=== PATIENT | male | born 1950 | race Caucasian/White ===

== ENCOUNTER 2024-07-27 18:39 | Inpatient (IN) | payer OTHER, SELFPAY ==
[2024-07-27] VITALS (10 sets, daily range): BP systolic 114–154; BP diastolic 67–80
[2024-07-27 11:23] LABS: % Basophils 0.4 % (0-2); % Immature Granulocytes 0.3 % (0-0.5); % Lymphocytes 17.5 % (20.5-51.1); % Monocytes 4.6 % (1.7-9.3); % Neutrophils 77.2 % (42.2-75.2); Absolute Lymphocytes 1.2 10^3/uL (1.2-3.4); Absolute Monocytes 0.3 10^3/uL (0.1-0.6); Absolute Neutrophils 5.4 10^3/uL (1.4-6.5); Hematocrit 33.8 % (39.0-52.0); Hemoglobin 11.7 g/dL (13.0-18.0); Mean Corp Hgb Conc. 34.6 g/dL (33.0-37.0); Mean Corpuscular Hgb 31.6 pg (27.0-31.0); Mean Corpuscular Volume 91.4 fL (80.0-94.0); Mean Platelet Volume 11.3 fL (7.4-10.4); Nucleated Red Blood Cells % 0 % (-); Platelet Count 208 10^3/uL (130-400); Red Cell Dist. Width 12.7 % (11.5-14.5)
[2024-07-27 11:45] LABS: ALT (SGPT) 20 U/L (0-50); AST (SGOT) 19 U/L (17-59); Alkaline Phosphatase 62 U/L (38-126); Blood Urea Nitrogen 50 mg/dl (9-20); Calcium 9.9 mg/dl (8.4-10.2); Carbon Dioxide 28 mmol/L (22-30); Chloride 109 mmol/L (98-107); Glucose 182 mg/dl (70-99); Lipase 41 U/L (23-300); NT-proBNP 566 pg/ml; Potassium 4.1 mmol/L (3.5-5.1); Sodium 146 mmol/L (135-145); Total Bilirubin 1.1 mg/dl (0.2-1.3); Total Protein 7.3 g/dl (6.3-8.2); Troponin I < 0.012 ng/ml; eGFR > 60.00
[2024-07-27] MEDS: NSS 500 IV (12:48)
[2024-07-27] MEDS: PROTONIX IV 80 MG IV (12:52)
[2024-07-27] MEDS: ZOFRAN 4 MG IV ×3 (12:53→18:21)
--- NOTE | 2024-07-27 14:07 | ED.GENMED ---
History of Present Illness
<WILLIE Tineo Jr. Last Filed: 07/28/24 08:28>
General
Chief Complaint: Abdominal Symptoms
Source: patient
Exam Limitations: none
Time Seen by Provider: 07/27/24 12:14
Nursing documentation reviewed up to this point in time: agreed with
History of Present Illness
History of Present Illness:
74-year-old male past medical history of CHF CAD valve disorder previous TAVR in 2021, ulcerative colitis presenting to the emergency department today with concerns of nausea vomiting diarrhea starting last night also pain across the abdomen noticed
very dark color of the stool as well.
Review of Systems
<Duke Pinon Jr., PA-C - Last Filed: 07/28/24 08:28>
Review of Systems
Allergies reviewed?: Yes
All Other Systems: ROS reviewed and negative except as documented in HPI and ROS
Phy Exam
<WILLIE Tineo Jr. Last Filed: 07/28/24 08:28>
Physical Exam
Physical Exam:
GENERAL: Alert , in no apparent distress
EYE: pupils equal and reactive
NECK: Supple, no significant adenopathy.
ENT: o/p clr, mmm.
CARDIAC: Regular rate and rhythm .
LUNGS: Clear breath sounds bilaterally, no acute respiratory distress, no wheezes/rales/rhonchi
ABDOMEN: Vague discomfort throughout the abdomen, rectal examination with dark black stool positive for guaiac
NEUROLOGICAL: Alert and oriented, no focal neuro deficits
SKIN: Warm and dry, skin intact.
MUSCULOSKELETAL: No edema, well perfused.
PSYCH: Normal and appropriate interaction.
Sepsis
<WILLIE Tineo Jr. Last Filed: 07/28/24 08:28>
Sepsis Screen
Sepsis Screen: Sepsis Ruled Out
Date: 07/28/24
Time: 08:28
<Sergey Matta PA-C - Last Filed: 07/27/24 15:57>
Sepsis Screening
Sepsis Assessment: Sepsis Ruled Out
Sepsis Screen
Sepsis Screen: Sepsis Ruled Out
Date: 07/27/24
Time: 15:56
Course
<Duke Pinon Jr., PA-C - Last Filed: 07/28/24 08:28>
Orders/Labs/Results
Orders:
Orders
07/27/24 10:45
Electrocardiogram (*1) Urgent
Reason for Study: Abdominal Pain
EKG- Treatment ONCE
07/27/24 11:03
Complete Blood Count/With Diff Urgent
Comprehensive Metabolic Panel Urgent
Ferritin Urgent
Comment: ADD ON
Iron Urgent
Comment: ADD ON
Lipase Urgent
NT-proBNP Urgent
Total Iron Binding Urgent
Comment: ADD ON
Troponin I Urgent
07/27/24 12:33
CT Abd/Pel (IV only)-DH only Urgent
Comment:
Reason For Exam: Gi bleed, mid abd pain
0.9% Sodium Chloride 500 ml [Nss] 500 ml IV BOLUS
Ondansetron Injectable [Zofran] 4 mg IV NOW STA
Pantoprazole [Protonix IV] 80 mg IV NOW STA
Chest [CR Chest - 2 Views ] Urgent
Comment:
Reason For Exam: cough
07/27/24 14:22
Type+Screen Urgent
07/27/24 Dinner
NPO
Allow oral meds: Yes
Allow clear liquids: No
NPO with Ice Chips: Yes
07/27/24 15:01
ABO2 Routine
BBK Wristband Number:
Associate notified that ABO2 has been ordered: Y
Date: 07/27/24
Time: 14:32
Senior Advocate ID: [id number]
07/27/24 15:55
HYDROmorphone [Dilaudid] 0.5 mg IV NOW STA
Ondansetron Injectable [Zofran] 4 mg IV NOW STA
07/27/24 17:45
Add On- LAB Urgent
Tests Added?: tibc ferritin iron
07/27/24 17:49
GASTROINTESTINAL CONSULT Routine
Consulting Provider: Gabriel Whatley
Was physician already notified: Yes
Reason for consult: poss upper gi bleed vs gastroenteritis
07/27/24 17:50
Admit/Transfer Patient As Directed
Co-Sign Provider:
Level of Care: Inpatient admission
Assign to:: Telemetry
Physician / Group: hai escalante
Diagnosis: gi bleed versus acute gastroentritis
Reason for Telemetry: Arrhythmia
Date to Stop Telemetry: 07/30/24
Time to Stop Telemetry: 11:00
Reason for Hospitalization: gi bleed versus acute gastroentritis
Expected length of stay greater than two midnights?: Yes
ELOS- Estimated Length of Stay in days: 3
I certify the patient meets the requirements for IP care: Yes
Code Status As Directed
Resuscitation Status: Full Code
07/27/24 17:56
PRN Pain Medication Management As Directed
May give lesser potent ordered pain med per pt: Yes
preference::
Protocol:: Medication orders for pain may be administered in a
manner that supports deferring to patient preference
when the pt is:
- Requesting an ordered lesser potent pain medication.
Least to most potent pain medications are defined
as: acetaminophen < NSAID < tramadol < opioids
(morphine, oxycodone, hydromorphone).
- Requesting a lesser dose of the same medication IF
ORDERED.
- Requesting a less intrusive route of administration
if both routes are prescribed by the provider (PO <
IV).
07/27/24 18:00
0.9% Sodium Chloride 1000 ml [Nss] 1,000 ml IV 60 mls/hr
07/27/24 18:16
Ondansetron Injectable [Zofran] 4 mg IV Q6HPRN PRN
07/27/24 21:18
Carvedilol [Coreg] 6.25 mg PO BID
Ezetimibe [Zetia] 10 mg PO QPM
HYDROmorphone [Dilaudid] 0.5 mg IV Q4HPRN PRN
HYDROmorphone [Dilaudid] 1 mg IV Q6HPRN PRN
Losartan [Cozaar] 50 mg PO BID
Rosuvastatin Calcium [Crestor] 5 mg PO QPM
dorzolamide-timolol 1 drop BOTH EYES BID
07/27/24 21:18
Activity As Directed
Activity Level: As Tolerated
Comment: uses cane at baseline
Intake/ Output As Directed
Frequency: Per unit guidelines
Old Records Request [Obtain Records] As Directed
Dates of Information to be Released: mar 2021
Type of Information Requested: Discharge Summary
Consults
Other
If Other, list type of info requested: echo, endoscopy report
Obtain Records from: [facility], [facility], Gastroenterology
Pneumatic Compression Sleeves As Directed
Type: Knee high
Vital Signs As Directed
Frequency: Per unit guidelines
Weight As Directed
Frequency: Daily
Pt Eval And Treat Routine
Activity Level: With Assistance
DX Deep Vein Thrombosis Video Routine
07/27/24 22:00
Gabapentin [Neurontin] 200 mg PO TID
Latanoprost [Xalatan Ophthalmic Solution] 1 drop BOTH EYES QPM
diphenhydramine-acetaminophen [Acetaminophen PM] 2 tablet PO HS
07/27/24 23:50
Stool Culture Routine
ALIX Source: Feces/Stool
Specimen Description:
Date Specimen was Collected: 07/27/24
Time Specimen was Collected: 23:10
Stool For WBC Routine
ALIX Source: Feces/Stool
Specimen Description:
Date Specimen was Collected: 07/27/24
Time Specimen was Collected: 23:10
07/28/24 Breakfast
NPO
Allow oral meds: Yes
Allow clear liquids: No
NPO with Ice Chips: No
Complete Blood Count/With Diff IN AM
Comprehensive Metabolic Panel IN AM
07/28/24 08:00
Acetaminophen [Tylenol] 1,000 mg PO DAILY
Amlodipine [Norvasc] 10 mg PO DAILY
Metoprolol Xl [Toprol Xl] 50 mg PO DAILY
Sertraline HCl [Zoloft] 50 mg PO DAILY
tadalafil 5 mg PO DAILY
07/29/24 06:00
Complete Blood Count/With Diff IN AM
Comprehensive Metabolic Panel IN AM
07/30/24 06:00
Complete Blood Count/With Diff IN AM
Comprehensive Metabolic Panel IN AM
07/30/24 08:00
Clonidine [Xlyyipbz-Bwi-7] 0.2 mg TRANSDERM NELSON
07/30/24 11:00
DC Protocol for Telemetry ONCE
Abnormal Lab Results
07/27/24
11:03
RBC 3.70 L 10^6/uL
(4.70-6.10)
Hgb 11.7 L g/dL
(13.0-18.0)
Hct 33.8 L %
(39.0-52.0)
MCH 31.6 H pg
(27.0-31.0)
MPV 11.3 H fL
(7.4-10.4)
Neutrophils % 77.2 H %
(42.2-75.2)
Lymphocytes % 17.5 L %
(20.5-51.1)
Sodium 146 H mmol/L
(135-145)
Chloride 109 H mmol/L
(98-107)
BUN 50 H mg/dl
(9-20)
Glucose 182 H mg/dl
(70-99)
07/27/24 11:03
07/27/24 11:03
Vital Signs
Initial and Last Documented VS:
Initial Vital Signs
Pulse Resp BP Pulse Ox
93 22 114/67 100
07/27/24 10:33 07/27/24 10:33 07/27/24 10:33 07/27/24 10:33
Last Documented Vital Signs
Temp Pulse Resp BP Pulse Ox
97.7 F 85 17 111/63 100
07/28/24 07:50 07/28/24 07:50 07/28/24 07:50 07/28/24 07:50 07/28/24 07:50
<Sergey Matta PA-C - Last Filed: 07/27/24 15:57>
Orders/Labs/Results
Orders:
Orders
07/27/24 10:45
Electrocardiogram (*1) Urgent
Reason for Study: Abdominal Pain
EKG- Treatment ONCE
07/27/24 11:03
Complete Blood Count/With Diff Urgent
Comprehensive Metabolic Panel Urgent
Ferritin Urgent
Comment: ADD ON
Iron Urgent
Comment: ADD ON
Lipase Urgent
NT-proBNP Urgent
Total Iron Binding Urgent
Comment: ADD ON
Troponin I Urgent
07/27/24 12:33
CT Abd/Pel (IV only)-[facility] only Urgent
Comment:
Reason For Exam: Gi bleed, mid abd pain
0.9% Sodium Chloride 500 ml [Nss] 500 ml IV BOLUS
Ondansetron Injectable [Zofran] 4 mg IV NOW STA
Pantoprazole [Protonix IV] 80 mg IV NOW STA
Chest [CR Chest - 2 Views ] Urgent
Comment:
Reason For Exam: cough
07/27/24 14:22
Type+Screen Urgent
07/27/24 Dinner
NPO
Allow oral meds: Yes
Allow clear liquids: No
NPO with Ice Chips: Yes
07/27/24 15:01
ABO2 Routine
BBK Wristband Number:
Associate notified that ABO2 has been ordered: Y
Date: 07/27/24
Time: 14:32
Senior Advocate ID: [id number]
07/27/24 15:55
HYDROmorphone [Dilaudid] 0.5 mg IV NOW STA
Ondansetron Injectable [Zofran] 4 mg IV NOW STA
07/27/24 17:45
Add On- LAB Urgent
Tests Added?: tibc ferritin iron
07/27/24 17:49
GASTROINTESTINAL CONSULT Routine
Consulting Provider: Gabriel Whatley
Was physician already notified: Yes
Reason for consult: poss upper gi bleed vs gastroenteritis
07/27/24 17:50
Admit/Transfer Patient As Directed
Co-Sign Provider:
Level of Care: Inpatient admission
Assign to:: Telemetry
Physician / Group: hai escalante
Diagnosis: gi bleed versus acute gastroentritis
Reason for Telemetry: Arrhythmia
Date to Stop Telemetry: 07/30/24
Time to Stop Telemetry: 11:00
Reason for Hospitalization: gi bleed versus acute gastroentritis
Expected length of stay greater than two midnights?: Yes
ELOS- Estimated Length of Stay in days: 3
I certify the patient meets the requirements for IP care: Yes
Code Status As Directed
Resuscitation Status: Full Code
07/27/24 17:56
PRN Pain Medication Management As Directed
May give lesser potent ordered pain med per pt: Yes
preference::
Protocol:: Medication orders for pain may be administered in a
manner that supports deferring to patient preference
when the pt is:
- Requesting an ordered lesser potent pain medication.
Least to most potent pain medications are defined
as: acetaminophen < NSAID < tramadol < opioids
(morphine, oxycodone, hydromorphone).
- Requesting a lesser dose of the same medication IF
ORDERED.
- Requesting a less intrusive route of administration
if both routes are prescribed by the provider (PO <
IV).
07/27/24 18:00
0.9% Sodium Chloride 1000 ml [Nss] 1,000 ml IV 60 mls/hr
07/27/24 18:16
Ondansetron Injectable [Zofran] 4 mg IV Q6HPRN PRN
07/27/24 21:18
Carvedilol [Coreg] 6.25 mg PO BID
Ezetimibe [Zetia] 10 mg PO QPM
HYDROmorphone [Dilaudid] 0.5 mg IV Q4HPRN PRN
HYDROmorphone [Dilaudid] 1 mg IV Q6HPRN PRN
Losartan [Cozaar] 50 mg PO BID
Rosuvastatin Calcium [Crestor] 5 mg PO QPM
dorzolamide-timolol 1 drop BOTH EYES BID
07/27/24 21:18
Activity As Directed
Activity Level: As Tolerated
Comment: uses cane at baseline
Intake/ Output As Directed
Frequency: Per unit guidelines
Old Records Request [Obtain Records] As Directed
Dates of Information to be Released: mar 2021
Type of Information Requested: Discharge Summary
Consults
Other
If Other, list type of info requested: echo, endoscopy report
Obtain Records from: [facility], [facility], Gastroenterology
Pneumatic Compression Sleeves As Directed
Type: Knee high
Vital Signs As Directed
Frequency: Per unit guidelines
Weight As Directed
Frequency: Daily
Pt Eval And Treat Routine
Activity Level: With Assistance
DX Deep Vein Thrombosis Video Routine
07/27/24 22:00
Gabapentin [Neurontin] 200 mg PO TID
Latanoprost [Xalatan Ophthalmic Solution] 1 drop BOTH EYES QPM
diphenhydramine-acetaminophen [Acetaminophen PM] 2 tablet PO HS
07/27/24 23:50
Stool Culture Routine
ALIX Source: Feces/Stool
Specimen Description:
Date Specimen was Collected: 07/27/24
Time Specimen was Collected: 23:10
Stool For WBC Routine
ALIX Source: Feces/Stool
Specimen Description:
Date Specimen was Collected: 07/27/24
Time Specimen was Collected: 23:10
07/28/24 Breakfast
NPO
Allow oral meds: Yes
Allow clear liquids: No
NPO with Ice Chips: No
Complete Blood Count/With Diff IN AM
Comprehensive Metabolic Panel IN AM
07/28/24 08:00
Acetaminophen [Tylenol] 1,000 mg PO DAILY
Amlodipine [Norvasc] 10 mg PO DAILY
Metoprolol Xl [Toprol Xl] 50 mg PO DAILY
Sertraline HCl [Zoloft] 50 mg PO DAILY
tadalafil 5 mg PO DAILY
07/29/24 06:00
Complete Blood Count/With Diff IN AM
Comprehensive Metabolic Panel IN AM
07/30/24 06:00
Complete Blood Count/With Diff IN AM
Comprehensive Metabolic Panel IN AM
07/30/24 08:00
Clonidine [Pdytpbow-Jap-3] 0.2 mg TRANSDERM NELSON
07/30/24 11:00
DC Protocol for Telemetry ONCE
Abnormal Lab Results
07/27/24
11:03
RBC 3.70 L 10^6/uL
(4.70-6.10)
Hgb 11.7 L g/dL
(13.0-18.0)
Hct 33.8 L %
(39.0-52.0)
MCH 31.6 H pg
(27.0-31.0)
MPV 11.3 H fL
(7.4-10.4)
Neutrophils % 77.2 H %
(42.2-75.2)
Lymphocytes % 17.5 L %
(20.5-51.1)
Sodium 146 H mmol/L
(135-145)
Chloride 109 H mmol/L
(98-107)
BUN 50 H mg/dl
(9-20)
Glucose 182 H mg/dl
(70-99)
07/27/24 11:03
07/27/24 11:03
Vital Signs
Initial and Last Documented VS:
Initial Vital Signs
Pulse Resp BP Pulse Ox
93 22 114/67 100
07/27/24 10:33 07/27/24 10:33 07/27/24 10:33 07/27/24 10:33
Last Documented Vital Signs
Temp Pulse Resp BP Pulse Ox
97.7 F 85 17 111/63 100
07/28/24 07:50 07/28/24 07:50 07/28/24 07:50 07/28/24 07:50 07/28/24 07:50
<Duke Pinon Jr., PA-C - Last Filed: 07/28/24 08:28>
MDM/Problems Addressed
MDM/Problems Addressed:
74-year-old male presenting to the emergency department today with concerns of vomiting diarrhea starting last night as well as abdominal pain. Also black-colored stool. Patient is on Plavix. Here her vital signs are normal patient no obvious
initial distress but does have tenderness to the mid abdomen. Rectal examination with black stool guaiac positive. Hemoglobin of 11.7 no old levels for comparison. BUN significantly elevated to 50. Was given fluids Protonix and Zofran.
<Sergey Matta PA-C - Last Filed: 07/27/24 15:57>
*Critical Care Note
Total Time (30-74mins, 75-104mins- exclusive of procedures): Not Applicable
<Sergey Matta PA-C - Last Filed: 07/27/24 15:57>
Update Note
Update Note:
Received care of patient upon signout pending abdominal CT. Abdominal CT without significant findings. Patient reexamined still slightly nauseous and in pain. Second dose of Zofran ordered. Admitted to hospitalist for upper GI bleed. Patient
admits to taking large amounts of Advil for his back pain and spinal stenosis coupled with his Plavix.
ED Attending Note
<Duke Pinon Jr., PA-C - Last Filed: 07/28/24 08:28>
-
Portions of this chart may have been created with voice recognition software.� Occasional wrong word or��sound alike� substitutions may have occurred due to the inherent limitations of voice recognition software.
Discharge Plan
Departure
Patient Disposition: Admit
Date of Disposition: 07/27/24
Time of Disposition: 15:56
Presentation/result/management discussed w/ accepting MD/DO: Hospitalist
Discharge Problem:
Acute upper GI bleed
Interventions
Interventions:
*Risk Screen - Suicide Last Done: 07/27/24 22:25
*General Assessment Last Done: 07/27/24 10:33
*Neglect/Abuse Screening Last Done: 07/27/24 18:59
*ED- Fall Risk Assessment Last Done: 07/27/24 21:02
*ED COVID-19 Vaccine History Last Done: 07/27/24 22:25
*Nursing Disposition Last Done: 07/27/24 21:02
IB-Hicwtn-Vnaptkrpdb Assessment Last Done: 07/27/24 13:02
Discharge Date and Time
Discharge Date/Time: 07/27/24 21:03
[2024-07-27] MEDS: DILAUDID 0.5 MG IV (16:04)
--- NOTE | 2024-07-27 16:50 | HPS.HSE ---
Family Physician
-
Family Physician: Deejay Crane
Chief Complaint
-
Nausea vomiting diarrhea black in color after eating Manciotti
History of Present Illness
74-year-old male complaining of nausea, vomiting, diarrhea and pain across his abdomen starting last night at 1130 and persisting into today along with dark stool watery stool. He reports this started a few hours after eating Manicotti premade from
a grocery store last night no one else ate. He is on oral iron for history of iron deficiency from GI bleed March 2021 secondary to angiodysplasia from aortic stenosis treated with endoscopy/ tranexamic acid. He had black heme positive stool on
exam in the ER with stable hemoglobin at 11.7. He is on Plavix and aspirin for history of TAVR 2021, cardiac stents greater than 20 years ago. He takes Advil 200 mg once a week drinks of kristin and nonalcoholic beer on weekends only. He denies
headache, sore throat, fever, chills, chest pain, palpitations, cough, shortness of breath, urinary symptoms, dizziness, sick contacts.
He has past medical history of GI bleed March 2021 secondary to angiodysplasia from aortic stenosis believes treated with tranexamic acid at [facility], diverticulosis, benign polyps, colonoscopy Dr. Roque [facility], chronic diastolic
CHF, CAD/cardiac stents 20 years ago [facility], TAVR 2021 [facility], ulcerative colitis stable times years, renal calculi, spinal stenosis, bilateral leg neuropathy glaucoma, BPH on chronic tadalafil, anxiety.
Medical History
Past Medical History
Past Medical History: Reports Other
Additional Past Medical History:
GI bleed March 2021 secondary to angiodysplasia from aortic stenosis believes treated with transischemic acid at [facility]
Diverticulosis
Benign polyps
Colonoscopy Dr. Roque [facility]
Chronic diastolic CHF
CAD/cardiac stents 20 years ago [facility]
TAVR 2021 [facility]
Ulcerative colitis stable times years
Renal calculi status post lithotripsy
Spinal stenosis with bilateral leg neuropathy
Glaucoma
BPH on chronic tadalafil
Class I obesity
Past Surgical History: Reports Other
Additional Past Surgical History:
Cardiac stents greater than 20 years ago [facility]
TAVR via right wrist [address] [facility] [address] Bermeo
Laser eye surgery due to glaucoma
Tonsillectomy age 3
Lithotripsy for renal calculi
Social History
Tobacco: Former Smoker (15 years cigar, 10 years 1/2 pack/day quit age 38)
Alcohol: Occasional (Weekends 1 shot kristin with nonalcoholic beer or 2 shots of tequila with nonalcoholic beer)
Drug: None
Personal:
Living: With Family ()
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
Family History
Family History: Not pertinent
Allergies / Home Medications
Allergies reflects when Allergies were last updated in [facility].
Home Medications with original date entered in [facility]
Allergy/Medication List:
Allergies
Allergy/AdvReac Type Severity Reaction Status Date / Time
No Known Allergies Allergy Unverified 07/27/24 10:38
Home Medications
acetaminophen 500 mg tablet 1,000 mg PO DAILY 07/27/24
amlodipine 10 mg tablet (Norvasc) 10 mg PO DAILY 07/27/24
ascorbic acid (vitamin C) 500 mg tablet (Vitamin C) 500 mg PO DAILY 07/27/24
aspirin 81 mg tablet,delayed release 81 mg PO DAILY 07/27/24
carvedilol 6.25 mg tablet (Coreg) 6.25 mg PO BID 07/27/24
clonidine 0.2 mg/24 hr weekly transdermal patch 1 patch transdermal NELSON 07/27/24
clopidogrel 75 mg tablet (Plavix) 75 mg PO DAILY 07/27/24
diphenhydramine 25 mg-acetaminophen 500 mg tablet (Acetaminophen PM) 2 tab PO HS 07/27/24
dorzolamide 22.3 mg-timolol 6.8 mg/mL eye drops 1 drp BOTH EYES BID 07/27/24
ezetimibe 10 mg tablet (Zetia) 10 mg PO QPM 07/27/24
ferrous sulfate 325 mg (65 mg iron) tablet 325 mg PO DAILY 07/27/24
fluticasone propionate 50 mcg/actuation nasal spray,suspension 1 spray intranasal HS 07/27/24
furosemide 40 mg tablet (Lasix) 40 mg PO DAILY 07/27/24
gabapentin 100 mg capsule 200 mg PO TID 07/27/24
ibuprofen 200 mg tablet (Advil) 200 mg PO Q6HPRN PRN MILD PAIN 07/27/24
losartan 50 mg tablet 50 mg PO BID 07/27/24
metoprolol succinate 50 mg tablet,extended release 24 hr (Toprol XL) 50 mg PO DAILY 07/27/24
rosuvastatin 5 mg tablet (Crestor) 5 mg PO QPM 07/27/24
sertraline 50 mg tablet 50 mg PO DAILY 07/27/24
tadalafil 5 mg tablet 5 mg PO DAILY 07/27/24
therapeutic multivitamin 1 tab PO DAILY 07/27/24
travoprost 0.004 % eye drops 1 drp BOTH EYES QPM 07/27/24
Review of Systems
-
History Source: Patient and Family ( Abena Hutchins at bedside)
Constitutional: Denies Fever, Fatigue or Chills
EENT: Reports Other (Chronic [place] does not have hearing aids); Denies Sore Throat or Runny Nose
Respiratory: Reports Cough (Occasional thick phlegm); Denies Trouble Breathing
Cardiac: Denies Chest Pain, Diaphoresis, Palpitations or Syncope
Abdomen/GI: Reports Nausea, Vomiting (Black), Diarrhea (Watery black), Black Stools and Other (No indigestion); Denies Abdominal Pain, Constipated, Bloody Stools or Anorexia
: Denies Dysuria, Frequency, Flank Pain, Incontinence, Difficulty Voiding, Urgency, Bleeding or Dark Urine
Musculoskeletal: Denies Joint Pain or Edema
Skin: Denies Itching or Rash
Neurological: Denies Dizzy, Headache or Weakness
Endocrine: Reports No Symptoms
Hematologic/Lymphatic: Reports No Symptoms
Psych: Reports Anxiety
Physical Exam
Vital Signs
Vital Signs
Pulse Resp BP Pulse Ox
81 20 146/78 99
07/27/24 16:45 07/27/24 16:45 07/27/24 16:00 07/27/24 16:45
Physical Exam
General: Conversant and Other (Anxious); No Pain, Fever or Chills
HEENT: NormoCephalic, Anicteric, PERRLA, [place] Conjunctivae, No Ptosis and Other (Dry oral mucosa)
Respiratory: Clear; No Wheezes, Rales or Rhonchi
Cardiac: S1/S2 and Regular Rhythm; No Murmur, Rub, Gallop or Peripheral Edema
Breast: Deferred by me
GI: Soft, Non Tender, Non Distended, Normal Bowel Sounds and No Hepatosplenomegaly
Rectal: Hem Positive (Black per ER eval)
Genito-urinary: Deferred by me
Musculoskeletal: No Clubbing, No Cyanosis and No Edema
Skin: Warm and Dry; No Rash
Neuro: AO x 3, No Motor Deficits, Cranial Nerves Intact and Other (Chronic [place] does not have hearing aids); No Slurred Speech, Facial Droop, Tremors or Sedated
Psych: Anxious
Laboratory Results
-
07/27/24 11:03
07/27/24 11:03
Laboratory Results
Total Bilirubin 1.1 mg/dl (0.2-1.3) 07/27/24 11:03
AST 19 U/L (17-59) 07/27/24 11:03
ALT 20 U/L (0-50) 07/27/24 11:03
Alkaline Phosphatase 62 U/L (38-126) 07/27/24 11:03
Troponin I < 0.012 ng/ml 07/27/24 11:03
Lipase 41 U/L (23-300) 07/27/24 11:03
Data Reviewed
-
CT Scan: Report Reviewed by me
Lab Data: Labs Reviewed by me
Impression/Plan
-
Impression/plan:
Admit to telemetry
#Black stool suspect upper GI bleed
#GI bleed March 2021 secondary to angiodysplasia from aortic stenosis believes treated with tranexamic acid at [facility]
#Diverticulosis hx
#Colonoscopy Dr. Roque [facility]-Benign polyps
Hgb stable 11.7, bun 50
- Heme positive black stool in ER 1 day nausea vomiting diarrhea
- IV Protonix 80 mg bolus given in ER
-Continue IV Protonix 80 mg twice daily
- Continue Zofran as needed
- Continue Dilaudid as needed abdominal pain
-Consult GI
-Hold Plavix 75 mg, aspirin 81 mg, hold ferrous sulfate
-Obtain records [facility] March 2021 admission GI, endoscopy
- Follow CBC, CMP
CT abdomen pelvis IV contrast only:
1. Patchy parenchymal opacity within the visualized lower lungs bilaterally, most likely atelectasis and/or scarring.
2. Coronary artery calcifications are present. Please correlate with symptoms of and risk factors for coronary artery disease, with further workup as clinically appropriate.
3. Mild parenchymal thinning of the right kidney diffusely. Bilateral renal cysts. Several hepatic cysts. Dystrophic calcification in the posterior right lobe of the liver.
4. Colonic diverticula with no convincing CT evidence for diverticulitis.
5. No evidence for abdominal aortic aneurysm. Mild dilation of the right common iliac artery.
6. Bony degenerative changes as described.
7. The appendix appears normal. No evidence for bowel obstruction or free intraperitoneal air.
CXR: Left lower lobe atelectasis and or pneumonia
#Nausea vomiting diarrhea concerns for Acute gastroenteritis versus possible food poisoning
Symptoms developed after eating Manicotti last night then started with symptoms at 11:30 PM persisted into today black vomit, watery black stool
- Stool culture
- IV NSS 60 cc x 1 L
#CAD/cardiac stents
#TAVR 2021
-Hold aspirin, Plavix
-Continue Coreg 6.25 mg p.o. twice daily with hold parameters, clonidine patch due to change on Wednesday
#Ulcerative colitis Hx
Has been stable for years is on no medication
#Iron deficiency post GI bleed March 2021
Hold ferrous sulfate
- Check iron panel
#Chronic diastolic CHF
I/O, daily weight
Hold Lasix 40 mg daily patient dry NA 146
EKG: Sinus rhythm with first-degree AV block 95 bpm, QTc 482 MS T wave inversions in inferior leads no previous EKGs available
#CAD/cardiac stents 20 years ago [facility]
# TAVR 2021 [facility]
Obtain records [facility] cardiology Dr. Bermeo
#Ulcerative colitis stable times years
#Spinal stenosis with bilateral leg neuropathy
- Continue Tylenol 1000 mg in a.m., Tylenol PM 2 tabs at bedtime
- Continue gabapentin 200 mg 3 times daily
#Glaucoma
-History of laser eye treatment
- Continue dorzolamide/timolol both eyes twice daily, travoprost 1 drop both eyes every afternoon
# BPH
on chronic tadalafil
#Chronic seasonal allergies
Patient uses Flonase nasal spray at bedtime
Chronic anxiety
Continue Zoloft 50 mg daily
#Hx renal calculi status post lithotripsy
Class I obesity�
Affects all aspects of care
dvt proph
- SCDs
Full code per patient with Abena Hutchins present
--- NOTE | 2024-07-27 17:44 | W.PN.UPDATE ---
Update Note
Progress Note Update
This is an addendum to H&P written by Sofi Campoverde on 07/27/2024.� Patient seen and examined independently with PROFESSIONAL SERVICES SPECIALIST.
74-year-old male past medical history of GI bleeding in 2021 secondary to angiodysplasia, ulcerative colitis, CAD status post stents 20 years ago, aortic stenosis status post TAVR 2021, CHF, hypertension, hyperlipidemia, renal calculi, spinal
stenosis, glucoma, anxiety, BPH, neuropathy, presenting with vomiting of black material, lose black-colored stools which started yesterday with some abdominal discomfort.�
Also with sore throat and cough from allergies.
Vital signs normal.� Hemoglobin 11.7.� Sodium of 146.
CT abdomen pelvis shows no acute findings.� Chest x-ray unremarkable.
Patient with upper GI bleeding likely secondary to angiodysplasias from aortic stenosis.� Also possible gastroenteritis.� N.p.o., IV fluids, Protonix twice daily, GI consulted.� Hold aspirin and Plavix.� Hold Lasix.� Check stool culture.� Check iron
studies.
[2024-07-27 18:14] LABS: Iron 100 ug/dl (49-181)
[2024-07-27] MEDS: NSS 1000 IV (18:14)
[2024-07-27 18:24] LABS: Percent Saturation 34 % (20-50); Total Iron Binding Capacity 294 ug/dl (261-462)
[2024-07-27] MEDS: TRUSOPT 2% OPHTHALMIC SOLUTION 1 DROP BOTH EYES (21:54)
[2024-07-27] MEDS: TIMOPTIC 0.5% OPHTHALMIC SOLUTION 1 DROP BOTH EYES (21:54)
[2024-07-27] MEDS: XALATAN OPHTHALMIC SOLUTION 1 DROP BOTH EYES (21:55)
[2024-07-27] MEDS: NEURONTIN 200 MG PO (22:03)
[2024-07-27] MEDS: CRESTOR 5 MG PO (22:04)
[2024-07-27] MEDS: TYLENOL 1000 MG PO (22:05)
[2024-07-27] MEDS: BENADRYL 50 MG PO (22:05)
[2024-07-27] MEDS: COREG 6.25 MG PO (22:06)
[2024-07-27] MEDS: ZETIA 10 MG PO (22:07)
[2024-07-27] MEDS: COZAAR 50 MG PO (22:07)
[2024-07-27] MEDS: PROTONIX IV 40 MG IV (22:08)
[2024-07-27] MEDS: NSS (PRESERVATIVE FREE) 10 ML IV (22:08)
[2024-07-28] VITALS (16 sets, daily range): BP systolic 12–139; BP diastolic 57–78; BMI 32.8
--- NOTE | 2024-07-28 05:49 | PTCARENOTE ---
Patient arrived safely from ED to floor. Patient pulled over from stretcher to bed d/t patient being unsteady on feet. Patient AAOx3. Patient oriented to room, call lubin within reach, bed in lowest position. Will continue to monitor.
[2024-07-28] MEDS: TIMOPTIC 0.5% OPHTHALMIC SOLUTION 1 DROP BOTH EYES ×2 (08:38→20:30)
[2024-07-28] MEDS: TRUSOPT 2% OPHTHALMIC SOLUTION 1 DROP BOTH EYES ×2 (08:38→20:33)
[2024-07-28] MEDS: NEURONTIN 200 MG PO ×3 (08:39→20:27)
[2024-07-28] MEDS: NSS (PRESERVATIVE FREE) 10 ML IV (08:39)
[2024-07-28] MEDS: TYLENOL 1000 MG PO ×2 (08:39→20:28)
[2024-07-28] MEDS: PROTONIX IV 40 MG IV (08:39)
[2024-07-28] MEDS: TOPROL XL 50 MG PO (08:40)
[2024-07-28] MEDS: ZOLOFT 50 MG PO (08:44)
[2024-07-28] MEDS: COZAAR 50 MG PO (08:44)
[2024-07-28] MEDS: COREG PO (08:46)
[2024-07-28 09:01] LABS: % Basophils 0.4 % (0-2); % Eosinophils 0.2 % (0-6); % Immature Granulocytes 0.5 % (0-0.5); % Lymphocytes 21.5 % (20.5-51.1); % Monocytes 8.1 % (1.7-9.3); % Neutrophils 69.3 % (42.2-75.2); Absolute Lymphocytes 1.8 10^3/uL (1.2-3.4); Absolute Monocytes 0.7 10^3/uL (0.1-0.6); Absolute Neutrophils 5.7 10^3/uL (1.4-6.5); Hematocrit 20.1 % (39.0-52.0); Hemoglobin 6.8 g/dL (13.0-18.0); Mean Corp Hgb Conc. 33.8 g/dL (33.0-37.0); Mean Corpuscular Hgb 32.1 pg (27.0-31.0); Mean Corpuscular Volume 94.8 fL (80.0-94.0); Mean Platelet Volume 11.2 fL (7.4-10.4); Nucleated Red Blood Cells % 0 % (-); Platelet Count 139 10^3/uL (130-400); Red Blood Cell Count 2.12 10^6/uL (4.70-6.10); Red Cell Dist. Width 13.4 % (11.5-14.5); White Blood Cell Count 8.2 10^3/uL (4.8-10.8)
[2024-07-28] MEDS: FLUSH (NSS) 1 FLUSH IV (09:08)
[2024-07-28 09:18] LABS: ALT (SGPT) 15 U/L (0-50); AST (SGOT) 14 U/L (17-59); Alkaline Phosphatase 37 U/L (38-126); Blood Urea Nitrogen 58 mg/dl (9-20); Calcium 8.4 mg/dl (8.4-10.2); Carbon Dioxide 27 mmol/L (22-30); Chloride 115 mmol/L (98-107); Estimated Creatinine Clearance 65 ml/min; Glucose 142 mg/dl (70-99); Potassium 3.9 mmol/L (3.5-5.1); Sodium 146 mmol/L (135-145); Total Bilirubin 0.6 mg/dl (0.2-1.3); Total Protein 5.2 g/dl (6.3-8.2); eGFR > 60.00
[2024-07-28] MEDS: PROTONIX 100 IV ×2 (10:09→21:01)
--- NOTE | 2024-07-28 10:09 | CON.GI ---
Addendum entered and electronically signed by Gabriel Whatley MD 07/28/24 15:38:
I saw and examined the patient.
The PA's note was reviewed and I agree with the note.
Comment:
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 He had multiple maroon colored rectal bleeding since
admission and his Hgb dropped from 11.7 down to 6.4 this morning. He reports NSAID use with Advil. Will proceed with EGD for evaluation/intervention.
Original Note:
Consultation
-
Date/Time Consultation Requested: 07/27/241748
Date/Time Consultation Performed: 07/28/24 0930
Requesting Provider: MALACIH Johnson
Performing Provider: Dr. Whatley/MALACHI Dean
Reason for Consultation: GI Bleed
Medical History
Chief Complaint / HPI
Chief Complaint: melena
History of Present Illness:
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
bipolar probe at [facility] with Dr. Kimball, iron deficiency anemia, chronic back pain, possible remote history of ulcerative colitis not on any medications followed by Dr. Sagrario Roque who presents to the emergency room with
3-day history darker stool followed by 1 day history of nausea, abdominal discomfort and black liquidy stool. He was found to be OB positive. Hemoglobin was 11.7. He is on Plavix and his last dose was yesterday. He also takes Advil 400 mg once
to twice a day for the past couple weeks for back pain. He also drinks kristin on the weekends. Since last evening he had multiple episodes of melena which is now progressed to maroon bowel movements. Since I have been here over the past hour he
has had 4 episodes of maroon blood per rectum. His hemoglobin dropped down to 6.4. He has persistent nausea. He is NPO. I was able to obtain records from his EGD 04/02/2021 that showed medium size AVM in the third portion of the duodenum. This
was bleeding. It was injected with 4 mL of epi. Bipolar probe was used to stop bleeding. The patient does not take any PPI at home. He denies aspirin use to me however this is listed on his MAR. He is diaphoretic. He denies any fevers, chills,
dysphagia or dyne aphasia. No early satiety or unintentional weight loss.
Past Medical History
Past Medical History: Other (GI bleed 03/2021 secondary to duodenal AVM, diverticulosis, colon polyps, CHF, CAD with cardiac stents (20 years ago): TAVR (2021), remote history of possible ulcerative colitis on no meds, kidney stones, spinal stenosis,
glaucoma, BPH,)
Past Surgical History: Other (Cardiac stents, TAVR, laser eye surgery, tonsillectomy, lithotripsy)
Social History
Tobacco: Former Smoker
Alcohol: Occasional (Weekend 3 drinks)
Drug: None
Personal:
Living: With Family
Employment: Employed
Family History
Family History: Other (Denies any family history gastrointestinal malignancy or IBD)
Allergies / Home Medications
Allergy/AdvReac Type Severity Reaction Status Date / Time
No Known Allergies Allergy Unverified 07/27/24 10:38
�Medication �Instructions �Recorded
acetaminophen 500 mg tablet 1,000 mg PO DAILY 07/27/24
amlodipine 10 mg tablet (Norvasc) 10 mg PO DAILY 07/27/24
ascorbic acid (vitamin C) 500 mg 500 mg PO DAILY 07/27/24
tablet (Vitamin C)
aspirin 81 mg tablet,delayed 81 mg PO DAILY 07/27/24
release
carvedilol 6.25 mg tablet (Coreg) 6.25 mg PO BID 07/27/24
clonidine 0.2 mg/24 hr weekly 1 patch transdermal NELSON 07/27/24
transdermal patch
clopidogrel 75 mg tablet (Plavix) 75 mg PO DAILY 07/27/24
diphenhydramine 25 2 tab PO HS 07/27/24
mg-acetaminophen 500 mg tablet
(Acetaminophen PM)
dorzolamide 22.3 mg-timolol 6.8 1 drp BOTH EYES BID 07/27/24
mg/mL eye drops
ezetimibe 10 mg tablet (Zetia) 10 mg PO QPM 07/27/24
ferrous sulfate 325 mg (65 mg 325 mg PO DAILY 07/27/24
iron) tablet
fluticasone propionate 50 1 spray intranasal HS 07/27/24
mcg/actuation nasal
spray,suspension
furosemide 40 mg tablet (Lasix) 40 mg PO DAILY 07/27/24
gabapentin 100 mg capsule 200 mg PO TID 07/27/24
ibuprofen 200 mg tablet (Advil) 200 mg PO Q6HPRN PRN MILD PAIN 07/27/24
losartan 50 mg tablet 50 mg PO BID 07/27/24
metoprolol succinate 50 mg 50 mg PO DAILY 07/27/24
tablet,extended release 24 hr
(Toprol XL)
rosuvastatin 5 mg tablet (Crestor) 5 mg PO QPM 07/27/24
sertraline 50 mg tablet 50 mg PO DAILY 07/27/24
tadalafil 5 mg tablet 5 mg PO DAILY 07/27/24
therapeutic multivitamin 1 tab PO DAILY 07/27/24
travoprost 0.004 % eye drops 1 drp BOTH EYES QPM 07/27/24
Review of Systems
-
All other systems: A 12 pt ROS was Negative except as stated above in HPI
Vital Signs
Temp Pulse Resp BP Pulse Ox
97.7 F 85 17 111/63 100
07/28/24 07:50 07/28/24 07:50 07/28/24 07:50 07/28/24 07:50 07/28/24 07:50
Physical Exam
Exam
General: Other (Pale, diaphoretic)
HEENT: Anicteric
Respiratory: Clear
Cardiac: Regular Rhythm (Heart rate 90, on beta-david)
GI: Soft, Non Tender, Non Distended and Normal Bowel Sounds
Rectal: Maroon Stools
Skin: Warm and Other (Diaphoretic)
Neuro: AO x 3
Psych: Calm
Results
WBC 8.2 10^3/uL (4.8-10.8) 07/28/24 08:26
Hgb 6.8 g/dL (13.0-18.0) L* D 07/28/24 08:26
Hct 20.1 % (39.0-52.0) L* 07/28/24 08:26
MCV 94.8 fL (80.0-94.0) H 07/28/24 08:26
Plt Count 139 10^3/uL (130-400) D 07/28/24 08:26
Absolute Neuts (auto) 5.7 10^3/uL (1.4-6.5) 07/28/24 08:26
Sodium 146 mmol/L (135-145) H 07/28/24 08:26
Potassium 3.9 mmol/L (3.5-5.1) 07/28/24 08:26
Chloride 115 mmol/L (98-107) H 07/28/24 08:26
Carbon Dioxide 27 mmol/L (22-30) 07/28/24 08:26
BUN 58 mg/dl (9-20) H 07/28/24 08:26
Creatinine 1.0 mg/dL (0.7-1.3) 07/28/24 08:26
Calcium 8.4 mg/dl (8.4-10.2) D 07/28/24 08:26
Total Bilirubin 0.6 mg/dl (0.2-1.3) 07/28/24 08:26
AST 14 U/L (17-59) L 07/28/24 08:26
ALT 15 U/L (0-50) 07/28/24 08:26
Alkaline Phosphatase 37 U/L (38-126) L 07/28/24 08:26
Lipase 41 U/L (23-300) 07/27/24 11:03
Diagnostic Image Results:
CT abdomen pelvis IV contrast only:
1. Patchy parenchymal opacity within the visualized lower lungs bilaterally, most likely atelectasis and/or scarring.
2. Coronary artery calcifications are present. Please correlate with symptoms of and risk factors for coronary artery disease, with further workup as clinically appropriate.
3. Mild parenchymal thinning of the right kidney diffusely. Bilateral renal cysts. Several hepatic cysts. Dystrophic calcification in the posterior right lobe of the liver.
4. Colonic diverticula with no convincing CT evidence for diverticulitis.
5. No evidence for abdominal aortic aneurysm. Mild dilation of the right common iliac artery.
6. Bony degenerative changes as described.
7. The appendix appears normal. No evidence for bowel obstruction or free intraperitoneal air.
CXR: Left lower lobe atelectasis and or pneumonia
Prior GI Procedures:
EGD: 04/02/2021 ([facility], Dr. Kimball) medium size AVM third portion of the duodenum. Injected with 4 mL of epi. Bipolar probe used with cessation of bleeding
Colonoscopy: Awaiting records from last colonoscopy, Dr. Roque
Assessment / Plan
-
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
bipolar probe at [facility] with Dr. Kimball, iron deficiency anemia, chronic back pain, possible remote history of ulcerative colitis not on any medications followed by Dr. Sagrario Roque who presents to the emergency room with
3-day history darker stool followed by 1 day history of nausea, abdominal discomfort and black liquidy stool. Hemoglobin was 11.7. Patient with multiple episodes of melena overnight that progressed to maroon stools. Hemoglobin dropped from 11.7
down to 6.4 this morning. In my presence has had at least 4 episodes of maroon stools within 1 hour. Diaphoretic with increased heart rate despite beta-david. Second IV line will be placed. Type and cross and blood hung. Patient switch from
pantoprazole twice daily to drip. BUN elevated out of proportion of creatinine 59/1.0. Patient with nausea. Discussed possibility of rapid prep with patient. He states he will not be able to tolerate. Concerns for brisk upper GI bleed given
Advil use, Plavix and possible aspirin although patient does deny aspirin at present time. History of prior duodenal AVM with treatment in 2021. Concerns also for ulcer as patient not on PPI.
Impression:
Active upper GI bleed
Acute blood loss anemia
Chronic iron deficiency
History of TAVR, on Plavix. Denies ASA use
History of CHF, on Lasix as outpatient
Chronic back pain with Ibuprofen use
Plan:
-Trf to IMU
-Obtain second IV line
-Change Protonix BID to gtt
-Transfuse 2 units PRBC now, will redraw labs and reassess if patient requires more blood products
-Discussed with patient possible rapid prep for colonoscopy as well as EGD however patient states he is too nauseous for prep.
-Plan on EGD only at this point today.
-Trend Hgb q 6hrs.
-Further recommendations to be forthcoming.
-
-
Thank you for consultation and allowing me to participate in the patient's care. Please call the professor of communication GI physician during the after hours with any questions or concerns.
--- NOTE | 2024-07-28 10:34 | W.PN.HOSP.TC ---
Today's Communication/Plan
-
see plan
Assessment / Plan
Assessment / Plan
Gen: NAD, AAOx3.
Eyes: EOMI, PERRLA, no scleral icterus.
Neck: supple.
CV: RRR, +S1/S2, no m/r/g.
Resp: CTAB, no rales, wheezes, or rhonchi.
Abd: +BS, soft, NT, ND
Skin: No rashes.
Neuro: CN 2-12 intact, non-focal.
Psych: Normal mood and affect.
CT A/P w/IV:
1. Patchy parenchymal opacity within the visualized lower lungs bilaterally, most likely atelectasis and/or scarring.
2. Coronary artery calcifications are present. Please correlate with symptoms of and risk factors for coronary artery disease, with further workup as clinically appropriate.
3. Mild parenchymal thinning of the right kidney diffusely. Bilateral renal cysts. Several hepatic cysts. Dystrophic calcification in the posterior right lobe of the liver.
4. Colonic diverticula with no convincing CT evidence for diverticulitis.
5. No evidence for abdominal aortic aneurysm. Mild dilation of the right common iliac artery.
6. Bony degenerative changes as described.
7. The appendix appears normal. No evidence for bowel obstruction or free intraperitoneal air.
CXR: Left lower lobe atelectasis and or pneumonia
Acute blood loss anemia due to acute upper GI bleeding:
-Exacerbated by Plavix. Aspirin and Plavix on hold.
-multiple bloody bowel movements this morning
-cont PPI gtt
-transfuse 2U pRBCs
-trend H/H Q6H
-NPO
-increase NS to 125cc/hr
CAD with h/o stents:
-holding ASA/Plavix as above
-cont Coreg
Essential HTN:
-currently hypotensive with acute GIB
-stop Clonidine/ARB/Norvasc
Other problems:
h/o TAVR
h/o UC
Chronic HFpEF: cont BB
Spinal stenosis with B/L LE neuropathy
Glaucoma: cont dorzolamide/timolol/travoprost
BPH: cont tadalafil
Anxiety: cont Zoloft
h/o renal calculi s/p lithotripsy
Obesity due to excess calories
FULL/SCDs
Anticipated Discharge: > 48 hours
Subjective/Interval History
-
Date of Service: July 28, 2024
Multiple bloody BMs this AM. Pt denies CP/SOB/abd pain.
Objective Data
-
Labs:
Laboratory Results
07/28/24
08:26
WBC 8.2
Hgb 6.8 L* D
Hct 20.1 L*
Plt Count 139 D
Sodium 146 H
Potassium 3.9
Chloride 115 H
Carbon Dioxide 27
BUN 58 H
Creatinine 1.0
Glucose 142 H
Calcium 8.4 D
Total Bilirubin 0.6
AST 14 L
ALT 15
Alkaline Phosphatase 37 L
Vital Signs:
Vital Signs
Temp Pulse Resp BP Pulse Ox
97.8 F 75 18 101/59 100
07/28/24 10:14 07/28/24 10:14 07/28/24 10:14 07/28/24 10:14 07/28/24 10:14
I&O
07/27/24 07/28/24 07/29/24
06:59 06:59 06:59
Intake Total 0 / 0
Output Total 200 / 200
Balance -200 / -200 0 / 0
--- NOTE | 2024-07-28 11:30 | PTCARENOTE ---
Pt received from health safety engineer RN. He reports over night he had 2 loose BM's. This morning he was feeling better, he called to use the bedpan and over the course of 1.5 hours he had 4 loose black/ burgundy stools. Hgb of 6.8 reported to MD. 2 units
PRBC's ordered with the first unit infusing currently. Pt is currently drowsy and lightheaded. NSR on tele with 1� AVB and frequent PVC's. Currently on 3L NC with sat of 100%. IV sites intact.
--- NOTE | 2024-07-28 15:00 | PTCARENOTE ---
Pt arrived to floor on stretcher from PACU; Protonix drip infusing into R wrist and pRBC's transfusing into RAC; Dried bloody stool noted - Pt cleaned up. Denies pain; AAO x 3; Lungs CTA; Pt placed on monitor - NSR with PVC's; Pt at bedside
- reviewed care plan. Will continue to monitor and assess.
--- NOTE | 2024-07-28 15:00 | CM ---
Addendum entered by Cassandra Bowman 07/28/24 16:32:
Patient seen at bedside in IMU. Patient sleepy but responded to questions. Patient lives with , children, several dogs, cats and horses. Patient has a cane but no other DME. 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 Patient
PCP is Dr. Crane and he uses [facility] in [facility]. Patient plan is home with no needs. CM will continue to follow for discharge planning needs.
Plan; pending medical treatment plan is home with no needs vs home with VN.
Original Note:
Patient transferred to IMU. CM will attempt to follow for assessment.
--- NOTE | 2024-07-28 16:38 | PN.CDI ---
CDI
- -
CDI:
Physician Documentation Request
Admit Date: 07/27/24 18:39
Dear Doctor Mickey,
Please review the following and provide your response in the progress notes.
Clinical Indicators:
Pt admitted with GI bleed/found to have bleeding duodenal ulcer
Sodium levels are as below
Laboratory Tests
07/27/24 07/28/24
11:03 08:26
Sodium 146 H 146 H
Based on the above, could you clarify in the progress notes, the appropriate diagnosis, if significant, that supports the above abnormalities and additional evaluation, monitoring and/or treatment rendered:
Hypernatremia
Abnormal lab value only
Other ( please specify)
Use of terms such as suspected, likely, concern for, or probable (associated with a specific diagnosis that is being evaluated, monitored, or treated as if it exists) are acceptable and can be coded in the inpatient setting, when documented at the
time of discharge.
Thank you,
Maile Lundy RN
CDI Specialist
[place] [facility]
Please use your independent medical judgment in providing your response.
[2024-07-28] MEDS: ZETIA 10 MG PO (17:18)
[2024-07-28] MEDS: CRESTOR 5 MG PO (17:18)
[2024-07-28] MEDS: XALATAN OPHTHALMIC SOLUTION 1 DROP BOTH EYES (17:33)
[2024-07-28 18:24] LABS: Hematocrit 23.7 % (39.0-52.0); Hemoglobin 8.3 g/dL (13.0-18.0); Mean Corpuscular Hgb 31.7 pg (27.0-31.0); Mean Corpuscular Volume 90.5 fL (80.0-94.0); Mean Platelet Volume 11.3 fL (7.4-10.4); Platelet Count 120 10^3/uL (130-400); Red Blood Cell Count 2.62 10^6/uL (4.70-6.10); Red Cell Dist. Width 14.7 % (11.5-14.5); White Blood Cell Count 10.9 10^3/uL (4.8-10.8)
[2024-07-28] MEDS: COREG 6.25 MG PO (20:27)
[2024-07-28] MEDS: BENADRYL 50 MG PO (20:29)
[2024-07-28] MEDS: NSS (PRESERVATIVE FREE) IV (20:38)
[2024-07-28 22:55] LABS: Hemoglobin 7.9 g/dL (13.0-18.0)
[2024-07-29] VITALS (15 sets, daily range): BP systolic 104–139; BP diastolic 50–69; PULSE 73; O2SAT 96; BMI 33.1
[2024-07-29 05:10] LABS: ALT (SGPT) 14 U/L (0-50); AST (SGOT) 15 U/L (17-59); Albumin 2.9 g/dl (3.5-5.0); Alkaline Phosphatase 35 U/L (38-126); Blood Urea Nitrogen 52 mg/dl (9-20); Calcium 8.5 mg/dl (8.4-10.2); Carbon Dioxide 23 mmol/L (22-30); Chloride 116 mmol/L (98-107); Estimated Creatinine Clearance 72 ml/min; Glucose 106 mg/dl (70-99); Potassium 3.6 mmol/L (3.5-5.1); Sodium 143 mmol/L (135-145); Total Protein 5.1 g/dl (6.3-8.2); eGFR > 60.00
[2024-07-29 05:31] LABS: % Basophils 0.6 % (0-2); % Eosinophils 1.6 % (0-6); % Immature Granulocytes 0.3 % (0-0.5); % Monocytes 7.4 % (1.7-9.3); % Neutrophils 64.1 % (42.2-75.2); Absolute Basophils 0.1 10^3/uL (0-0.2); Absolute Eosinophils 0.2 10^3/uL (0-0.7); Absolute Lymphocytes 2.5 10^3/uL (1.2-3.4); Absolute Monocytes 0.7 10^3/uL (0.1-0.6); Absolute Neutrophils 6.1 10^3/uL (1.4-6.5); Hematocrit 21.6 % (39.0-52.0); Hemoglobin 7.5 g/dL (13.0-18.0); Mean Corp Hgb Conc. 34.7 g/dL (33.0-37.0); Mean Corpuscular Hgb 31.8 pg (27.0-31.0); Mean Corpuscular Volume 91.5 fL (80.0-94.0); Mean Platelet Volume 11.3 fL (7.4-10.4); Nucleated Red Blood Cells % 0.2 % (-); Platelet Count 105 10^3/uL (130-400); Red Blood Cell Count 2.36 10^6/uL (4.70-6.10); Red Cell Dist. Width 14.8 % (11.5-14.5); White Blood Cell Count 9.5 10^3/uL (4.8-10.8)
[2024-07-29] MEDS: PROTONIX 100 IV ×2 (08:22→18:16)
[2024-07-29] MEDS: TOPROL XL 50 MG PO (08:23)
[2024-07-29] MEDS: TYLENOL 1000 MG PO ×2 (08:23→20:47)
[2024-07-29] MEDS: NEURONTIN 200 MG PO ×3 (08:23→20:46)
[2024-07-29] MEDS: COREG PO ×3 (08:24→20:38)
[2024-07-29] MEDS: TRUSOPT 2% OPHTHALMIC SOLUTION BOTH EYES ×2 (08:24→08:30)
[2024-07-29] MEDS: TIMOPTIC 0.5% OPHTHALMIC SOLUTION BOTH EYES ×2 (08:24→08:30)
[2024-07-29] MEDS: NSS (PRESERVATIVE FREE) IV ×2 (08:24→20:39)
[2024-07-29] MEDS: ZOLOFT 50 MG PO (08:24)
--- NOTE | 2024-07-29 08:25 | W.PN.HOSP.TC ---
Addendum entered and electronically signed by Saravanan Arevalo MD 07/29/24 10:28:
Very minimal hypernatremia, Na 146
Original Note:
Today's Communication/Plan
-
see plan
Assessment / Plan
Assessment / Plan
Gen: NAD, AAOx3.
Eyes: EOMI, PERRLA, no scleral icterus.
Neck: supple.
CV: RRR, +S1/S2, no m/r/g.
Resp: CTAB, no rales, wheezes, or rhonchi.
Abd: +BS, soft, NT, ND
Skin: No rashes.
Neuro: CN 2-12 intact, non-focal.
Psych: Normal mood and affect.
CT A/P w/IV:
1. Patchy parenchymal opacity within the visualized lower lungs bilaterally, most likely atelectasis and/or scarring.
2. Coronary artery calcifications are present. Please correlate with symptoms of and risk factors for coronary artery disease, with further workup as clinically appropriate.
3. Mild parenchymal thinning of the right kidney diffusely. Bilateral renal cysts. Several hepatic cysts. Dystrophic calcification in the posterior right lobe of the liver.
4. Colonic diverticula with no convincing CT evidence for diverticulitis.
5. No evidence for abdominal aortic aneurysm. Mild dilation of the right common iliac artery.
6. Bony degenerative changes as described.
7. The appendix appears normal. No evidence for bowel obstruction or free intraperitoneal air.
CXR: Left lower lobe atelectasis and or pneumonia
EGD 07/28/24: Widely patent and non-obstructing Schatzki ring.
- Maroon colored blood in the gastric body.
- Oozing duodenal ulcer with a visible vessel.
Injected. Treated with bipolar cautery. Clips (MR
conditional) were placed.
- Normal first portion of the duodenum and second
portion of the duodenum.
- No specimens collected.
Acute blood loss anemia due to acute upper GI bleeding:
-Exacerbated by Plavix. Aspirin and Plavix on hold.
-multiple bloody bowel movements 07/28/24AM
-s/p 2U pRBCs
-EGD above, notable for oozing duodenal ulcer with visible vessel, injected, treated with bipolar cautery and clips.
-cont PPI gtt x 72 hours
-trend Hb
-clears
CAD with h/o stents:
-holding ASA/Plavix as above due to life threatening GIB
-cont Coreg
Essential HTN:
-home Clonidine/ARB/Norvasc on hold
Other problems:
h/o TAVR
h/o UC
Chronic HFpEF: cont BB
Spinal stenosis with B/L LE neuropathy
Glaucoma: cont dorzolamide/timolol/travoprost
BPH: cont tadalafil
Anxiety: cont Zoloft
h/o renal calculi s/p lithotripsy
Obesity due to excess calories
FULL/SCDs
Anticipated Discharge: 24 - 48 hours
Subjective/Interval History
-
Date of Service: July 29, 2024
Denies chest pain, shortness of breath, abdominal pain.
Objective Data
-
Labs:
Laboratory Results
07/28/24 07/29/24 07/29/24
22:45 04:13 04:13
WBC Cancelled
Hgb 7.9 L Cancelled Cancelled
Hct Cancelled
Plt Count Cancelled
Sodium 143
Potassium 3.6
Chloride 116 H
Carbon Dioxide 23
BUN 52 H
Creatinine 0.9
Glucose 106 H
Calcium 8.5
Total Bilirubin 1.0
AST 15 L
ALT 14
Alkaline Phosphatase 35 L
07/29/24 07/29/24 07/29/24
: 10:00 16:00
WBC 9.5
Hgb 7.5 L Pending Pending
Hct 21.6 L
Plt Count 105 L
Sodium
Potassium
Chloride
Carbon Dioxide
BUN
Creatinine
Glucose
Calcium
Total Bilirubin
AST
ALT
Alkaline Phosphatase
Vital Signs:
Vital Signs
Temp Pulse Resp BP Pulse Ox
98.2 F 68 26 119/60 95
07/29/24 07:05 07/29/24 06:00 07/29/24 06:00 07/29/24 06:00 07/29/24 06:00
I&O
07/28/24 07/29/24 07/30/24
06:59 06:59 06:59
Intake Total 610 / 610
Output Total 200 / 200 300 / 300
Balance -200 / -200 310 / 310
[2024-07-29 10:28] LABS: Hemoglobin 7.1 g/dL (13.0-18.0)
--- NOTE | 2024-07-29 10:58 | W.PN.GI.CBS2 ---
Today's Communication / Plan
-
resume ASA today, low res diet
Assessment / Plan
-
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
bipolar probe at [facility] with Dr. Kimball, iron deficiency anemia, chronic back pain, possible remote history of ulcerative colitis not on any medications followed by Dr. Sagrario Roque who presents to the emergency room with
3-day history darker stool followed by 1 day history of nausea, abdominal discomfort and black liquidy stool. Hemoglobin was 11.7. Patient with multiple episodes of melena overnight that progressed to maroon stools. Hemoglobin dropped from 11.7
down to 6.4 this morning. In my presence has had at least 4 episodes of maroon stools within 1 hour. Diaphoretic with increased heart rate despite beta-david. Second IV line will be placed. Type and cross and blood hung. Patient switch from
pantoprazole twice daily to drip. BUN elevated out of proportion of creatinine 59/1.0. Patient with nausea. Discussed possibility of rapid prep with patient. He states he will not be able to tolerate. Concerns for brisk upper GI bleed given
Advil use, Plavix and possible aspirin although patient does deny aspirin at present time. History of prior duodenal AVM with treatment in 2021. Concerns also for ulcer as patient not on PPI.
S/p EGD yesterday which showed duodenal ulcer with oozing of blood intervene with bipolar coagulation, injection, and endoclips. He had 1 melenic BM overnight otherwise no further rectal bleeding. Denies abdominal pain. His Hgb 7.1 this a.m.
Will need to continue to monitor his Hgb, currently his ASA/Plavix are on hold, can restart ASA today and resume his Plavix after 48 hours. Complete a 72-hour course of Protonix infusion and switch to oral. Can advance his diet today.
Total Time Spent with Patient (in minutes): 35
Subjective
Subjective
Date of Service: July 29, 2024
Had 1 melenic BM o/n. Denies abdo pain.
Objective
Data Reviewed
Laboratory Data:
Laboratory Results
07/29/24 04:13
Laboratory Results
Total Bilirubin 1.0 mg/dl (0.2-1.3) 07/29/24 04:13
AST 15 U/L (17-59) L 07/29/24 04:13
ALT 14 U/L (0-50) 07/29/24 04:13
Alkaline Phosphatase 35 U/L (38-126) L 07/29/24 04:13
Lipase 41 U/L (23-300) 07/27/24 11:03
Vital Signs and I&O:
Vital Signs
Temp Pulse Resp BP Pulse Ox
98.2 F 74 26 122/60 95
07/29/24 07:05 07/29/24 08:23 07/29/24 06:00 07/29/24 08:23 07/29/24 06:00
I&O
07/28/24 07/29/24 07/30/24
06:59 06:59 06:59
Intake Total 610 / 610
Output Total 200 / 200 300 / 300
Balance -200 / -200 310 / 310
[2024-07-29] MEDS: LOW STRENGTH ASPIRIN 81 MG PO (12:52)
[2024-07-29 16:13] LABS: Hemoglobin 7.5 g/dL (13.0-18.0)
[2024-07-29] MEDS: CRESTOR 5 MG PO (18:16)
[2024-07-29] MEDS: ZETIA 10 MG PO (18:16)
[2024-07-29] MEDS: NON-FORMULARY ITEM 1 UNIT OPHTH (18:17)
--- NOTE | 2024-07-29 20:00 | PTCARENOTE ---
Resumed care of pt laying in bed AAOx3, Pt LITTLE TRAVERSE. Pt assist to bathroom, pt with loose burgundy stools. Pt denies any abd complaints. + bowel, round obese abd. Pt reports nose feels stuffed up, Flonase administered as ordered. POX 90% on RA. 2 LO2 NC
applied, POX now 97%. Lungs dec @ bases. HR in the 60's in NSR with PVC's and BBB on the monitor. Protonix gtt infusing via right wrist int. Vital signs stable. Call lubin in reach. Will continue to monitor.
[2024-07-29] MEDS: NON-FORMULARY ITEM 1 DROP BOTH EYES (20:39)
[2024-07-29] MEDS: NON-FORMULARY ITEM 1 SPRAY NASAL (20:45)
[2024-07-29] MEDS: BENADRYL 50 MG PO (20:46)
[2024-07-30] VITALS (18 sets, daily range): BP systolic 125–152; BP diastolic 60–117; BMI 33.9
[2024-07-30 03:56] LABS: % Basophils 0.4 % (0-2); % Eosinophils 1.2 % (0-6); % Immature Granulocytes 0.4 % (0-0.5); % Lymphocytes 26.3 % (20.5-51.1); % Monocytes 7.9 % (1.7-9.3); % Neutrophils 63.8 % (42.2-75.2); Absolute Eosinophils 0.1 10^3/uL (0-0.7); Absolute Lymphocytes 2.2 10^3/uL (1.2-3.4); Absolute Monocytes 0.7 10^3/uL (0.1-0.6); Absolute Neutrophils 5.3 10^3/uL (1.4-6.5); Hematocrit 19.2 % (39.0-52.0); Hemoglobin 6.7 g/dL (13.0-18.0); Mean Corp Hgb Conc. 34.9 g/dL (33.0-37.0); Mean Corpuscular Hgb 32.1 pg (27.0-31.0); Mean Corpuscular Volume 91.9 fL (80.0-94.0); Mean Platelet Volume 11.6 fL (7.4-10.4); Nucleated Red Blood Cells % 0.2 % (-); Platelet Count 104 10^3/uL (130-400); Red Blood Cell Count 2.09 10^6/uL (4.70-6.10); Red Cell Dist. Width 13.9 % (11.5-14.5); White Blood Cell Count 8.2 10^3/uL (4.8-10.8)
[2024-07-30 04:19] LABS: ALT (SGPT) 18 U/L (0-50); AST (SGOT) 19 U/L (17-59); Albumin 3.1 g/dl (3.5-5.0); Alkaline Phosphatase 43 U/L (38-126); Blood Urea Nitrogen 31 mg/dl (9-20); Calcium 8.3 mg/dl (8.4-10.2); Carbon Dioxide 25 mmol/L (22-30); Chloride 115 mmol/L (98-107); Estimated Creatinine Clearance 72 ml/min; Glucose 94 mg/dl (70-99); Potassium 3.5 mmol/L (3.5-5.1); Sodium 142 mmol/L (135-145); Total Bilirubin 0.8 mg/dl (0.2-1.3); Total Protein 5.3 g/dl (6.3-8.2); eGFR > 60.00
[2024-07-30] MEDS: PROTONIX 100 IV ×3 (05:02→23:39)
--- NOTE | 2024-07-30 05:18 | PTCARENOTE ---
Leeanna LY notified of am lab results. 1 unit RBC's ordered and now infusing. Pt denies any complaints at this time. Vital signs remain stable. WIll continue to monitor.
[2024-07-30] MEDS: COREG PO (08:21)
[2024-07-30] MEDS: LOW STRENGTH ASPIRIN 81 MG PO (08:21)
[2024-07-30] MEDS: TYLENOL 1000 MG PO ×2 (08:22→20:51)
[2024-07-30] MEDS: NEURONTIN 200 MG PO ×3 (08:22→20:51)
[2024-07-30] MEDS: TOPROL XL 50 MG PO (08:22)
[2024-07-30] MEDS: ZOLOFT 50 MG PO (08:23)
[2024-07-30] MEDS: NSS (PRESERVATIVE FREE) IV ×2 (09:34→23:18)
[2024-07-30] MEDS: NON-FORMULARY ITEM 1 DROP BOTH EYES ×2 (10:31→20:49)
[2024-07-30 12:27] LABS: Hematocrit 21.2 % (39.0-52.0); Hemoglobin 7.6 g/dL (13.0-18.0)
--- NOTE | 2024-07-30 13:03 | W.PN.GI.CBS2 ---
Today's Communication / Plan
-
NPO from midnight, may need repeat EGD tomorrow
Assessment / Plan
-
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
bipolar probe at [facility] with Dr. Kimball, iron deficiency anemia, chronic back pain, possible remote history of ulcerative colitis not on any medications followed by Dr. Sagrario Roque who presents to the emergency room with
3-day history darker stool followed by 1 day history of nausea, abdominal discomfort and black liquidy stool. Hemoglobin was 11.7. Patient with multiple episodes of melena overnight that progressed to maroon stools. Hemoglobin dropped from 11.7
down to 6.4 this morning. In my presence has had at least 4 episodes of maroon stools within 1 hour. Diaphoretic with increased heart rate despite beta-david. Second IV line will be placed. Type and cross and blood hung. Patient switch from
pantoprazole twice daily to drip. BUN elevated out of proportion of creatinine 59/1.0. Patient with nausea. Discussed possibility of rapid prep with patient. He states he will not be able to tolerate. Concerns for brisk upper GI bleed given
Advil use, Plavix and possible aspirin although patient does deny aspirin at present time. History of prior duodenal AVM with treatment in 2021. Concerns also for ulcer as patient not on PPI.
His Hgb trickled down to 6.7 this a.m. and received 1 unit of blood. He had 1 melenic bowel movement overnight. May need repeat endoscopic evaluation pending his Hgb tomorrow. Keep n.p.o. from midnight tonight in case he needs repeat endoscopy.
Total Time Spent with Patient (in minutes): 35
Subjective
Subjective
Date of Service: July 30, 2024
Had 1 melenic BM o/n.
Objective
Data Reviewed
Laboratory Data:
Laboratory Results
07/30/24 03:04
Laboratory Results
Total Bilirubin 0.8 mg/dl (0.2-1.3) 07/30/24 03:04
AST 19 U/L (17-59) 07/30/24 03:04
ALT 18 U/L (0-50) 07/30/24 03:04
Alkaline Phosphatase 43 U/L (38-126) 07/30/24 03:04
Lipase 41 U/L (23-300) 07/27/24 11:03
Vital Signs and I&O:
Vital Signs
Temp Pulse Resp BP Pulse Ox
98.5 F 62 19 144/78 90
07/30/24 07:37 07/30/24 11:00 07/30/24 11:00 07/30/24 10:00 07/30/24 11:00
I&O
07/29/24 07/30/24 07/31/24
06:59 06:59 06:59
Intake Total 610 / 610 480 / 480 250 / 250
Output Total 300 / 300 650 / 650
Balance 310 / 310 -170 / -170 250 / 250
--- NOTE | 2024-07-30 13:22 | W.PN.HOSP.TC ---
Today's Communication/Plan
-
monitor Hb
tentative EGD tomorrow if still evidence of bleeding; NPO p MN
Plavix remains held
Assessment / Plan
Assessment / Plan
Gen: NAD, AAOx3.
Eyes: EOMI, PERRLA, no scleral icterus.
Neck: supple.
CV: RRR, +S1/S2, no m/r/g.
Resp: CTAB, no rales, wheezes, or rhonchi.
Abd: +BS, soft, NT, ND
Skin: No rashes.
Neuro: CN 2-12 intact, non-focal.
Psych: Normal mood and affect.
EGD 07/28/24: Widely patent and non-obstructing Schatzki ring.
- Maroon colored blood in the gastric body.
- Oozing duodenal ulcer with a visible vessel.
Injected. Treated with bipolar cautery. Clips (MR
conditional) were placed.
- Normal first portion of the duodenum and second
portion of the duodenum.
- No specimens collected.
Assessment:
Acute blood loss anemia due to acute upper GI bleeding:
-Exacerbated by Plavix. Plavix remains held.
-s/p 3U pRBCs
- trend Hb
-EGD above, notable for oozing duodenal ulcer with visible vessel, injected, treated with bipolar cautery and clips.
-cont PPI gtt x 72 hours
-trend Hb
-NPO p MN for possible repeat EGD 07/31 due to ongoing anemia
CAD with h/o stents:
-continue ASA
-Plavix remains held.
-cont Coreg
Essential HTN:
-home Clonidine/ARB/Norvasc on hold
h/o TAVR
h/o UC
Chronic HFpEF: cont BB
Spinal stenosis with B/L LE neuropathy
Glaucoma: cont dorzolamide/timolol/travoprost
BPH: cont tadalafil
Anxiety: cont Zoloft
h/o renal calculi s/p lithotripsy
Obesity due to excess calories
DVT ppx: SCDs
Code: Full
Anticipated Discharge: 24 - 48 hours
Subjective/Interval History
-
Date of Service: July 30, 2024
Melena x 1 overnight
Hb 6.7 and now 7.6 after 1 unit
resting comfortably, no complaints presently
Objective Data
-
Labs:
Laboratory Results
07/30/24 07/30/24 07/30/24
03:04 12:18 18:00
WBC 8.2
Hgb 6.7 L* 7.6 L Pending
Hct 19.2 L* 21.2 L Pending
Plt Count 104 L
Sodium 142
Potassium 3.5
Chloride 115 H
Carbon Dioxide 25
BUN 31 H
Creatinine 0.9
Glucose 94
Calcium 8.3 L
Total Bilirubin 0.8
AST 19
ALT 18
Alkaline Phosphatase 43
Vital Signs:
Vital Signs
Temp Pulse Resp BP Pulse Ox
98.5 F 62 19 144/78 90
07/30/24 07:37 07/30/24 11:00 07/30/24 11:00 07/30/24 10:00 07/30/24 11:00
I&O
07/29/24 07/30/24 07/31/24
06:59 06:59 06:59
Intake Total 610 / 610 480 / 480 250 / 250
Output Total 300 / 300 650 / 650
Balance 310 / 310 -170 / -170 250 / 250
Data Reviewed
-
Total Time Spent with Patient (in minutes): 42
Labs: Labs Reviewed by me
--- NOTE | 2024-07-30 14:10 | PTCARENOTE ---
Patient refused COreg dose this morning. Patient educated about the rational for the medication. Notified Dr. Morrow.
[2024-07-30] MEDS: CRESTOR 5 MG PO (17:08)
[2024-07-30] MEDS: ZETIA 10 MG PO (17:08)
[2024-07-30] MEDS: NON-FORMULARY ITEM 1 UNIT OPHTH (17:08)
[2024-07-30 18:32] LABS: Hematocrit 24.4 % (39.0-52.0); Hemoglobin 8.5 g/dL (13.0-18.0)
[2024-07-30] MEDS: BENADRYL 50 MG PO (20:50)
[2024-07-30] MEDS: COREG 3.125 MG PO (20:52)
[2024-07-30] MEDS: NON-FORMULARY ITEM 1 SPRAY NASAL (20:52)
--- NOTE | 2024-07-30 23:32 | PTCARENOTE ---
Patient AAOx3, [place]. Pt assisted back into bed standby assistance with wires and use of single point cane. Pt denies any recent BMs. Pt appears pallor but denies any abdominal pain or discomfort. Bowel sounds present in all 4 quadrants. Abdomen is
round non-tender. Pt educated on the need for being NPO at midnight for repeat EDG, pt understanding. 94% on room air. Protonix gtt cont. VSS. Assessment and vitals as charted see worklist. Pt rings appropriately, and has call lubin within reach.
[2024-07-31] VITALS (23 sets, daily range): BP systolic 16–175; BP diastolic 73–94; PULSE 70; O2SAT 96; BMI 34.0
[2024-07-31 05:05] LABS: Hematocrit 22.8 % (39.0-52.0); Hemoglobin 8.1 g/dL (13.0-18.0); Mean Corp Hgb Conc. 35.5 g/dL (33.0-37.0); Mean Corpuscular Volume 90.1 fL (80.0-94.0); Mean Platelet Volume 11.4 fL (7.4-10.4); Platelet Count 124 10^3/uL (130-400); Red Blood Cell Count 2.53 10^6/uL (4.70-6.10); Red Cell Dist. Width 14.3 % (11.5-14.5); White Blood Cell Count 7.2 10^3/uL (4.8-10.8)
[2024-07-31 05:24] LABS: Blood Urea Nitrogen 16 mg/dl (9-20); Calcium 8.8 mg/dl (8.4-10.2); Carbon Dioxide 25 mmol/L (22-30); Chloride 114 mmol/L (98-107); Estimated Creatinine Clearance 94 ml/min; Glucose 103 mg/dl (70-99); Potassium 3.5 mmol/L (3.5-5.1); Sodium 144 mmol/L (135-145); eGFR > 60.00
[2024-07-31] MEDS: NEURONTIN 200 MG PO ×3 (09:34→21:57)
[2024-07-31] MEDS: TYLENOL 1000 MG PO ×2 (09:34→21:58)
[2024-07-31] MEDS: COREG 3.125 MG PO ×2 (09:35→19:34)
[2024-07-31] MEDS: LOW STRENGTH ASPIRIN 81 MG PO (09:35)
[2024-07-31] MEDS: TOPROL XL 50 MG PO (09:35)
[2024-07-31] MEDS: PROTONIX 100 IV (09:35)
[2024-07-31] MEDS: ZOLOFT 50 MG PO (09:35)
[2024-07-31] MEDS: NON-FORMULARY ITEM 1 DROP BOTH EYES ×2 (09:36→19:33)
[2024-07-31] MEDS: NSS (PRESERVATIVE FREE) IV ×2 (09:36→20:07)
--- NOTE | 2024-07-31 10:11 | PN.CDI ---
CDI
- -
CDI:
Physician Documentation Request
Admit Date: 07/27/24 18:39
Dear Doctor,
Please review the following and provide your response in the progress notes.
Clinical Indicators:
Pt admitted with GI bleed/found to have bleeding duodenal ulcer
GI progress note 07/29 PN, ' S/p EGD yesterday which showed duodenal ulcer with oozing of blood intervene with bipolar coagulation, injection, and endoclips..'
Please Clarify which of the following accurately represents the suspected acuity of the Duodenal ulcer:
Acute
Acute on Chronic
Chronic
Other ( please specify)
Use of terms such as suspected, likely, concern for, or probable (associated with a specific diagnosis that is being evaluated, monitored, or treated as if it exists) are acceptable and can be coded in the inpatient setting, when documented at the
time of discharge.
Thank you,
Maile Lundy RN
CDI Specialist
[place] [facility]
Please use your independent medical judgment in providing your response.
[2024-07-31 11:35] LABS: Hemoglobin 7.7 g/dL (13.0-18.0); Mean Corpuscular Hgb 31.3 pg (27.0-31.0); Mean Corpuscular Volume 89.4 fL (80.0-94.0); Mean Platelet Volume 11.5 fL (7.4-10.4); Platelet Count 118 10^3/uL (130-400); Red Blood Cell Count 2.46 10^6/uL (4.70-6.10); Red Cell Dist. Width 14.3 % (11.5-14.5); White Blood Cell Count 6.9 10^3/uL (4.8-10.8)
--- NOTE | 2024-07-31 13:23 | W.PN.HOSP.TC ---
Today's Communication/Plan
-
repeat EGD Today
Assessment / Plan
Assessment / Plan
Gen: NAD, AAOx3.
Eyes: EOMI, PERRLA, no scleral icterus.
Neck: supple.
CV: RRR, +S1/S2, no m/r/g.
Resp: CTAB, no rales, wheezes, or rhonchi.
Abd: +BS, soft, NT, ND
Skin: No rashes.
Neuro: CN 2-12 intact, non-focal.
Psych: Normal mood and affect.
EGD 07/28/24: Widely patent and non-obstructing Schatzki ring.
- Maroon colored blood in the gastric body.
- Oozing duodenal ulcer with a visible vessel.
Injected. Treated with bipolar cautery. Clips (MR
conditional) were placed.
- Normal first portion of the duodenum and second
portion of the duodenum.
- No specimens collected.
Assessment:
Acute blood loss anemia due to acute upper GI bleeding:
-Exacerbated by Plavix. Plavix remains held.
-s/p 3U pRBCs
-trend Hb, most recently 7.7
-EGD above, notable for oozing duodenal ulcer with visible vessel, injected, treated with bipolar cautery and clips.
-repeat EGD 07/31 due to ongoing anemia
-cont PPI gtt x 72 hours
CAD with h/o stents:
-continue ASA
-Plavix remains held.
-cont Coreg
Essential HTN:
-home Clonidine/ARB/Norvasc on hold
h/o TAVR
h/o UC
Chronic HFpEF: cont BB
Spinal stenosis with B/L LE neuropathy
Glaucoma: cont dorzolamide/timolol/travoprost
BPH: cont tadalafil
Anxiety: cont Zoloft
h/o renal calculi s/p lithotripsy
Obesity due to excess calories
DVT ppx: SCDs
Code: Full
Anticipated Discharge: 24 - 48 hours
Subjective/Interval History
-
Date of Service: July 31, 2024
Hb 7.7 on repeat and for EGD today
Objective Data
-
Labs:
Laboratory Results
07/31/24 07/31/24
04:48 11:15
WBC 7.2 6.9
Hgb 8.1 L 7.7 L
Hct 22.8 L 22.0 L
Plt Count 124 L 118 L
Sodium 144
Potassium 3.5
Chloride 114 H
Carbon Dioxide 25
BUN 16
Creatinine 0.7
Glucose 103 H
Calcium 8.8
Vital Signs:
Vital Signs
Temp Pulse Resp BP Pulse Ox
98.5 F 62 29 166/85 97
07/31/24 11:01 07/31/24 11:00 07/31/24 11:00 07/31/24 10:00 07/31/24 11:00
I&O
07/30/24 07/31/24 08/01/24
06:59 06:59 06:59
Intake Total 480 / 480 1090 / 1090 110 / 110
Output Total 650 / 650 1350 / 1350 750 / 750
Balance -170 / -170 -260 / -260 -640 / -640
Data Reviewed
-
Total Time Spent with Patient (in minutes): 41
Labs: Labs Reviewed by me
--- NOTE | 2024-07-31 17:01 | PTCARENOTE ---
Addendum entered by Angelika Paniagua RN 07/31/24 18:41:
Dr Morrow responded he will order po protonix.
Original Note:
Protonix infusion order completed and no further orders have been entered. TT sent to Dr Morrow.
[2024-07-31] MEDS: CRESTOR 5 MG PO (17:23)
[2024-07-31] MEDS: NON-FORMULARY ITEM 1 UNIT OPHTH (17:23)
[2024-07-31] MEDS: ZETIA 10 MG PO (17:23)
[2024-07-31] MEDS: PROTONIX 40 MG PO (21:57)
[2024-07-31] MEDS: BENADRYL 50 MG PO (21:57)
[2024-07-31] MEDS: NON-FORMULARY ITEM 1 SPRAY NASAL (21:58)
[2024-08-01] VITALS (12 sets, daily range): BP systolic 145–178; BP diastolic 67–96; PULSE 78; O2SAT 92; BMI 33.7
[2024-08-01] MEDS: NORVASC 10 MG PO (04:30)
[2024-08-01 04:58] LABS: Hematocrit 22.6 % (39.0-52.0); Mean Corp Hgb Conc. 35.4 g/dL (33.0-37.0); Mean Corpuscular Hgb 31.9 pg (27.0-31.0); Mean Platelet Volume 11.4 fL (7.4-10.4); Platelet Count 142 10^3/uL (130-400); Red Blood Cell Count 2.51 10^6/uL (4.70-6.10); Red Cell Dist. Width 14.3 % (11.5-14.5); White Blood Cell Count 6.8 10^3/uL (4.8-10.8)
--- NOTE | 2024-08-01 05:07 | PTCARENOTE ---
Patient AAOx3, [place], pleasant. Pt in chair at change of shift. Pt ambulated to the bathroom with standby assistance and a single point cane. Pt complaining of slight abdominal discomfort. Pt had a small BM dark in color no bright blood noted. Pt
abdominal pain subsided afterwards. Hygiene encouraged and provided, oral care done. VSS. Pt placed on 2L NC due to periods of apnea overnight. SpO2 98%. Pt hypertensive overnight INSTRUMENT/CONTROL TECHNICIANTAMAR Staton made aware, one time order for amlodipine, see MAR. Call
lubin within reach.
[2024-08-01 05:12] LABS: Blood Urea Nitrogen 12 mg/dl (9-20); Calcium 8.9 mg/dl (8.4-10.2); Carbon Dioxide 26 mmol/L (22-30); Chloride 112 mmol/L (98-107); Estimated Creatinine Clearance 94 ml/min; Glucose 102 mg/dl (70-99); Potassium 3.5 mmol/L (3.5-5.1); Sodium 144 mmol/L (135-145); eGFR > 60.00
--- NOTE | 2024-08-01 06:25 | W.PN.UPDATE ---
Update Note
Progress Note Update
BPs have been steadily increasing. Initially on admit was hypotensive due to hypovolemia. Now that he is improving will add back his bp meds with parameters.
--- NOTE | 2024-08-01 07:31 | PTCARENOTE ---
Patient minimally responsive to amlodipine dose. BP 172/75 SPRAY II PAINTER Brionna made aware, added amlodipine and losartan to morning medications. See MAR.
--- NOTE | 2024-08-01 08:40 | W.PN.GI.CBS2 ---
Today's Communication / Plan
-
gi signing off, ok to restart plavix
Assessment / Plan
-
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
bipolar probe at [facility] with Dr. Kimball, iron deficiency anemia, chronic back pain, possible remote history of ulcerative colitis not on any medications followed by Dr. Sagrario Roque presenting with melena taking NSAIDs for
spinal stenosis requiring 3UPRBC.
Underwent [address] Whatley this admission:
07/28 DU treated with epi, bipolar, clips
07/31 relook pigmented spot
I personally reviewed endoscopy pictures today
C/w duodenal ulcer bleed in setting of NSAIDs
Hb stable
Tolerating regular diet
Recommendations:
- Continue protonix 40 BID x8 weeks then daily
- OK to resume plavix
- Avoid all NSAIDs except ASA which he needs
- Trend Hb - on discharge would have him repeat in 1 week
GI will sign off please call with questions
Subjective
Subjective
Date of Service: August 01, 2024
Stool solid brown/black yesterday
Objective
Data Reviewed
Laboratory Data:
Laboratory Results
08/01/24 04:40
08/01/24 04:40
Laboratory Results
Total Bilirubin 0.8 mg/dl (0.2-1.3) 07/30/24 03:04
AST 19 U/L (17-59) 07/30/24 03:04
ALT 18 U/L (0-50) 07/30/24 03:04
Alkaline Phosphatase 43 U/L (38-126) 07/30/24 03:04
Lipase 41 U/L (23-300) 07/27/24 11:03
Vital Signs and I&O:
Vital Signs
Temp Pulse Resp BP Pulse Ox
98.8 F 60 21 172/75 97
08/01/24 03:06 08/01/24 06:00 08/01/24 06:00 08/01/24 06:00 08/01/24 06:00
I&O
07/31/24 08/01/24 08/02/24
06:59 06:59 06:59
Intake Total 1090 / 1090 110 / 110
Output Total 1350 / 1350 1950 / 1950
Balance -260 / -260 -1840 / -1840
Physical Exam
Physical Exam
GI: Non Distended and Non Tender
[2024-08-01] MEDS: TOPROL XL 50 MG PO (09:27)
[2024-08-01] MEDS: TYLENOL 1000 MG PO (09:27)
[2024-08-01] MEDS: COZAAR 50 MG PO (09:27)
[2024-08-01] MEDS: PROTONIX 40 MG PO (09:27)
[2024-08-01] MEDS: LOW STRENGTH ASPIRIN 81 MG PO (09:27)
[2024-08-01] MEDS: NEURONTIN 200 MG PO ×2 (09:27→16:15)
[2024-08-01] MEDS: NSS (PRESERVATIVE FREE) IV (09:27)
[2024-08-01] MEDS: COREG 3.125 MG PO (09:27)
[2024-08-01] MEDS: ZOLOFT 50 MG PO (09:28)
[2024-08-01] MEDS: NON-FORMULARY ITEM 1 DROP BOTH EYES (09:32)
[2024-08-01] MEDS: PLAVIX 75 MG PO (10:49)
--- NOTE | 2024-08-01 11:51 | PTCARENOTE ---
Pt hypertensive with SBP in the 160-170's despite AM medications. Dr. Morrow notified. Per MD, will be addressed upon rounds.
--- NOTE | 2024-08-01 13:05 | W.PN.HOSP.TC ---
Addendum entered and electronically signed by Roberto Morrow MD 08/01/24 14:02:
More than 30 minutes spent in discharge including
Final examination of the patient
Summarizing hospital stay
Instructions for continuing care to all relevant caregivers
Preparation of discharge records, prescriptions, and referral forms
Total time spent (in minutes): 42
Original Note:
Today's Communication/Plan
-
repeat PT/OT and likely dc this afternoon if ok
Assessment / Plan
Assessment / Plan
Assessment:
Acute blood loss anemia due to acute upper GI bleeding:
-Exacerbated by Plavix. Plavix remains held.
-s/p 3U pRBCs
-trend Hb, most recently 8.0. repeat in 1 week.
-s/p EGD 07/28 with oozing duodenal ulcer with visible vessel, injected, treated with bipolar cautery and clips.
-repeat EGD 07/31 relook with pigmented spot, no active bleeding
-s/p PPI drip now on oral PPI
CAD with h/o stents:
-continue ASA
-resume Plavix today (ok per GI)
-cont Coreg
Essential HTN:
-home Clonidine/ARB/Norvasc resumed
h/o TAVR
h/o UC
Chronic HFpEF: cont BB
Spinal stenosis with B/L LE neuropathy
Glaucoma: cont dorzolamide/timolol/travoprost
BPH: cont tadalafil
Anxiety: cont Zoloft
h/o renal calculi s/p lithotripsy
Obesity due to excess calories
DVT ppx: SCDs
Code: Full
Anticipated Discharge: Today
Subjective/Interval History
-
Date of Service: August 01, 2024
resting comfortably, no complaints at present
Objective Data
-
Labs:
Laboratory Results
08/01/24
04:40
WBC 6.8
Hgb 8.0 L
Hct 22.6 L
Plt Count 142 D
Sodium 144
Potassium 3.5
Chloride 112 H
Carbon Dioxide 26
BUN 12
Creatinine 0.7
Glucose 102 H
Calcium 8.9
Vital Signs:
Vital Signs
Temp Pulse Resp BP Pulse Ox
97.9 F 67 20 173/82 94
08/01/24 07:30 08/01/24 10:00 08/01/24 10:00 08/01/24 10:00 08/01/24 10:00
I&O
07/31/24 08/01/24 08/02/24
06:59 06:59 06:59
Intake Total 1090 / 1090 110 / 110
Output Total 1350 / 1350 1950 / 1950 1800 / 1800
Balance -260 / -260 -1840 / -1840 -1800 / -1800
Physical Exam
-
General: No Apparent Distress
HEENT: Normocephalic and Atraumatic
Respiratory: Negative Wheezes
Cardiac: Regular Rhythm and S1/S2
GI: Soft and Nontender
Musculoskeletal: No Edema
Neuro: AO x 3
Psych: Calm
Data Reviewed
-
Total Time Spent with Patient (in minutes): 41
Labs: Labs Reviewed by me
[2024-08-01] MEDS: APRESOLINE 5 MG IV (13:41)
--- NOTE | 2024-08-01 14:02 | W.DS.TRANS ---
DC Summary - [employer]
-
Discharge Instructions:
Sleep Apnea Risk Intermediate
Discharge Diagnosis/Procedures acute GI bleed with blood loss anemia in setting
of duodenal ulcer from NSAIDs
Diet Regular
Activity As tolerated
Blood Work repeat CBC - script given
Instructions:
Stand-Alone Forms:
Changes to Home Medications: No
Discharge Medications:
DC Medications w/original date entered in [facility]
acetaminophen 500 mg tablet 1,000 mg PO DAILY 07/27/24
amlodipine 10 mg tablet (Norvasc) 10 mg PO DAILY 07/27/24
ascorbic acid (vitamin C) 500 mg tablet (Vitamin C) 500 mg PO DAILY 07/27/24
aspirin 81 mg tablet,delayed release 81 mg PO DAILY 07/27/24
clonidine 0.2 mg/24 hr weekly transdermal patch 1 patch transdermal NELSON 07/27/24
clopidogrel 75 mg tablet (Plavix) 75 mg PO DAILY 07/27/24
diphenhydramine 25 mg-acetaminophen 500 mg tablet (Acetaminophen PM) 2 tab PO HS 07/27/24
dorzolamide 22.3 mg-timolol 6.8 mg/mL eye drops 1 drp BOTH EYES BID 07/27/24
ezetimibe 10 mg tablet (Zetia) 10 mg PO QPM 07/27/24
ferrous sulfate 325 mg (65 mg iron) tablet 325 mg PO DAILY 07/27/24
fluticasone propionate 50 mcg/actuation nasal spray,suspension 1 spray intranasal HS 07/27/24
furosemide 40 mg tablet (Lasix) 40 mg PO DAILY 07/27/24
gabapentin 100 mg capsule 200 mg PO TID 07/27/24
losartan 50 mg tablet 50 mg PO BID 07/27/24
metoprolol succinate 50 mg tablet,extended release 24 hr (Toprol XL) 50 mg PO DAILY 07/27/24
rosuvastatin 5 mg tablet (Crestor) 5 mg PO QPM 07/27/24
sertraline 50 mg tablet 50 mg PO DAILY 07/27/24
tadalafil 5 mg tablet 5 mg PO DAILY 07/27/24
therapeutic multivitamin 1 tab PO DAILY 07/27/24
travoprost 0.004 % eye drops 1 drp BOTH EYES QPM 07/27/24
pantoprazole 40 mg tablet,delayed release 40 mg PO BID #60 tabs 08/01/24
Home Medication Changes
Pending Results: No
Total time spent discharging patient (in min): 42
--- NOTE | 2024-08-01 14:07 | CM ---
Patient with Dx Acute blood loss anemia due to acute upper GI bleeding. Room air. PT/OT recommend HH.
Messages with Char MALONE; she will work with patient again today before d/c.
Met with patient who was preparing for discharge. The patient says he feels ready for discharge home today. IMM completed.
Offered VN for SN/PT/OT and patient declined saying he does not feel it is needed- he states he feels he will be more mobile like before, when he gets home. Patient states he has a RW at home but does not plan on using it.
His will provide transport home today.
Plan home today.
--- NOTE | 2024-08-01 14:30 | PTCARENOTE ---
IV Hydralazine order received, administered with good effect- see MAR.
--- NOTE | 2024-08-01 17:12 | PTCARENOTE ---
Pt for d/c. Director Of Knowledge Management RN at bedside to assist with d/c. D/c home with .
--- NOTE | 2024-08-01 18:08 | W.PN.UPDATE ---
Update Note
Progress Note Update
Documenting for billing purposes. Pt was diagnosed with acute duodenal ulcer.
== END 2024-08-01 17:09 | disposition home or self-care (01) | DRG 378 ==
LOC: IMU 18:39
PROVIDERS: Clinical Nurse Specialist Family Health; Internal Medicine; Nurse Practitioner Family; ADMITTING PHYSICIAN Hospitalist; ATTENDING PHYSICIAN Internal Medicine; CONSULT PHYSICIAN Internal Medicine Gastroenterology; EMERGENCY PHYSICIAN Emergency Medicine; FAMILY PHYSICIAN Family Medicine
PROC: 30233N1 Transfusion of Nonautologous Red Blood Cells into Peripheral Vein, Percutaneous Approach (ICD-10-PCS; 2024-07-28)
PROC: 0D598ZZ Destruction of Duodenum, Via Natural or Artificial Opening Endoscopic (ICD-10-PCS; 2024-07-28)
PROC: 0DJ08ZZ Inspection of Upper Intestinal Tract, Via Natural or Artificial Opening Endoscopic (ICD-10-PCS; 2024-07-31)
DX: K26.0 Acute duodenal ulcer with hemorrhage (principal); D62 Acute posthemorrhagic anemia; D68.32 Hemorrhagic disorder due to extrinsic circulating anticoagulants; I50.32 Chronic diastolic (congestive) heart failure; K51.911 Ulcerative colitis, unspecified with rectal bleeding; E87.0 Hyperosmolality and hypernatremia; K22.2 Esophageal obstruction; I25.10 Atherosclerotic heart disease of native coronary artery without angina pectoris; Z95.5 Presence of coronary angioplasty implant and graft; Z79.02 Long term (current) use of antithrombotics/antiplatelets; Z79.82 Long term (current) use of aspirin; I11.0 Hypertensive heart disease with heart failure; Z95.2 Presence of prosthetic heart valve; M48.00 Spinal stenosis, site unspecified; G57.93 Unspecified mononeuropathy of bilateral lower limbs; H40.9 Unspecified glaucoma; N40.0 Benign prostatic hyperplasia without lower urinary tract symptoms; F41.9 Anxiety disorder, unspecified; Z87.442 Personal history of urinary calculi; E66.09 Other obesity due to excess calories; Z87.891 Personal history of nicotine dependence; E66.811 Obesity, class 1; Z68.33 Body mass index [BMI] 33.0-33.9, adult; Z79.899 Other long term (current) drug therapy; Z86.0100 Personal history of colon polyps, unspecified
CPT/HCPCS: 71046; 74177; 80048; 80053; 82728; 83540; 83550; 83690; 83880; 84484; 85014; 85018; 85025; 85027; 86850; 86900; 86901; 86920; 87045; 87046; 87427; 89055; 93005; 96374; 96375; 96376; 97116; 97163; 97166; 97530; 99285; P9016; Q9967